=== PATIENT | female | born 1950 | race Caucasian/White ===

== ENCOUNTER 2019-01-23 17:34 | Emergency (ER) | payer OTHER, MEDICAID ==
[~2019-01-23] VITALS: Ht 144.8 cm; Wt 65.8 kg
[2019-01-23 17:45] VITALS: BP 147/86
--- NOTE | 2019-01-23 18:40 | NUR ---
68 Y FEMALE BIB DAUGHTER C/O RIGHT HIP PAIN RADIATING DOWN RIGHT LEG X 3DAYS. PAIN 02/26. DENIES TRAUMA. +DYSURIA. WENT TO PCP 12/26/18 & GOT BALCLOFEN. PATIENT HAS BEEN TAKING THE MEDICATION BUT STATES "DOES NOT HELP". [id number]. BED IS DOWN, LOCKED, BED RAIL X 1, ERMD TO SEE PT. MED HX: DENIES
--- NOTE | 2019-01-23 18:43 | NUR ---
DR SOTELO AT BEDSIDE
[2019-01-23] MEDS ORDERED: KETOROLAC 60 MG/2 ML VIAL IM ONE (18:50)
[2019-01-23] MEDS ORDERED: HYDROcodone/APAP 5/325 MG 1 TAB TAB PO ONE (18:50)
--- NOTE | 2019-01-23 18:59 | NUR ---
PT BEING TAKEN TO XRAY VIA WHEELCHAIR
--- NOTE | 2019-01-23 19:11 | NUR ---
PT RETURNED FROM XRAY
--- NOTE | 2019-01-23 19:12 | NUR ---
REPORT GIVEN TO ECHO HOANG
[2019-01-23 19:35] VITALS: BP 140/78
--- NOTE | 2019-01-23 19:35 | NUR ---
Patient discharged with v/s stable. Written and verbal after care instructions given and explained WITH DAUGHTER AT BEDSIDE. Patient alert, oriented and verbalized understanding of instructions. Ambulatory with steady gait. All questions addressed prior to discharge. ID band removed. Patient advised to follow up with PMD. Rx of NORCO 5MG-325MG AND NAPROSYN 375MG given. Patient educated on indication of medication including possible reaction and side effects. Opportunity to ask questions provided and answered.
== END 2019-01-23 19:35 | disposition home or self-care (01) ==
LOC: MED 17:34
DX: M54.41 Lumbago with sciatica, right side (principal); M25.551 Pain in right hip; Z90.49 Acquired absence of other specified parts of digestive tract
CPT/HCPCS: 72100; 73502; 96372; 99283; J1885